=== PATIENT | female | born 1960 | race Caucasian/White ===

== ENCOUNTER 2023-05-21 11:19 | Outpatient (CLI) | payer BC | END 2023-05-21 11:20 | disposition home or self-care (01) | LOC: BICRAD 11:19 | PROVIDERS: ATTEND Urology | DX: N20.0 Calculus of kidney (principal); M61.9 Calcification and ossification of muscle, unspecified | CPT/HCPCS: 74018 ==

== ENCOUNTER 2023-07-02 09:19 | Inpatient (IN) | payer BC ==
[2023-07-02 10:10] LABS: Bilirubin Unable to Interpret (Negative); Blood, Urine Unable to Interpret (Negative); Clarity Clear (Clear); Glucose, Urine (Dipstick) Unable to Interpret mg/dL (Negative); Ketone, Urine Unable to Interpret mg/dL (Negative); Leukocyte Unable to Interpret Leu/uL (Negative); Nitrite Unable to Interpret (Negative); Protein, Urine (Dipstick) Unable to Interpret mg/dL (Neg-Trace); Urobilinogen UNABLE TO INTERPRET mg/dL (Less than 2)
[2023-07-02 10:12] LABS: #Basophils 0.1 thou/uL (0.0-0.2); #Eosinphils 0.2 thou/uL (0.0-0.7); #Monocytes 0.8 thou/uL (0.11-0.59); #Neutrophils 6.4 thou/uL (1.40-6.50); %Basophils 0.8 % (0.0-1.0); %Eosinophils 2.3 % (0.0-10.0); %Lymphocytes 27.2 % (21.0-51.0); %Monocytes 7.5 % (0.0-10.0); %Neutrophils 61.8 % (42.0-75.0); Hematocrit 40.8 % (36.0-47.0); Hemoglobin 13.5 g/dL (12.0-16.0); Mean Corpuscular HGB CONC 33.1 g/dL (32.0-36.0); Mean Corpuscular Hemoglobin 30.5 pg (27.0-31.0); Mean Corpuscular Volume 92.3 fl (78.0-98.0); Mean Platelet Volume 8.7 fL (7.4-10.4); Platelet Count 344 10x3/uL (130-400); RBC Distribution Width 12.7 % (11.5-14.5); Red Blood Cell (RBC) Count 4.42 mill/uL (4.20-5.40); White Blood Cell (WBC) Count 10.3 10x3/uL (4.8-10.8)
[2023-07-02] MEDS ORDERED: Ketorolac Tromethamine 30 MG (1 mL) VIAL ONE (10:15)
[2023-07-02] MEDS ORDERED: Ondansetron PF 4 MG/2 ML Vial ONE (10:15)
[2023-07-02] MEDS ORDERED: Morphine 4 MG/ML VIAL ONE (10:15)
[2023-07-02 10:19] LABS: Bacteria/HPF Rare-Few HPF (None Seen); CAUTI Indications for Culture Pelvic or flank pain; WBC/HPF 0-3 HPF (0-3)
[2023-07-02 10:20] LABS: Urine Culture Reflex No No
[2023-07-02 10:36] LABS: ALT (SGPT) 24 U/L (8-55); AST (SGOT) 21 U/L (5-34); Albumin 4.5 g/dL (3.4-4.8); Alkaline Phosphatase 73 U/L (40-110); Anion Gap 15 mmol/L (10-20); BUN (Urea Nitrogen) 12 mg/dL (9.8-20.1); Bilirubin, Total 0.3 mg/dL (0.2-1.2); Calc. Creatinine Clearance 0 mL/min (70-130); Calcium 9.9 mg/dL (7.8-10.44); Carbon Dioxide 23 mmol/L (23-31); Chloride 104 mmol/L (98-107); Estimated GFR 81; Globulin 3.2 g/dL (2.4-3.5); Glucose 113 mg/dL (80-115); Lipase 32 U/L (8-78); Magnesium 2.5 mg/dL (1.6-2.6); Potassium 4.2 mmol/L (3.5-5.1); Protein, Total 7.7 g/dL (5.8-8.1); Sodium 138 mmol/L (136-145)
[2023-07-02 10:44] LABS: Troponin I Less than 0.010 ng/mL (< 0.028)
[2023-07-02] MEDS ORDERED: Iopamidol-370 76% 500 ML MDV (1 ML CHARGE) ONE (11:10)
[2023-07-02] MEDS ORDERED: Ketorolac Tromethamine 30 MG (1 mL) VIAL IVP PRN (12:39)
[2023-07-02] MEDS ORDERED: Ondansetron ODT 4 MG TAB SL PRN (12:39)
[2023-07-02] MEDS ORDERED: Morphine 4 MG/ML VIAL SLOW IVP PRN (12:39)
[2023-07-02] MEDS ORDERED: Acetaminophen 325 MG TAB PO PRN (12:39)
[2023-07-02] MEDS ORDERED: Ondansetron PF 4 MG/2 ML Vial IVP PRN (12:39)
[2023-07-02 13:35] LABS: INR-International Normal Ratio 0.9; Prothrombin Time 12.3 sec (12.0-14.7)
[2023-07-02 13:36] LABS: PTT 34.5 sec (22.9-36.1)
[2023-07-02 15:53] VITALS: BMI 32.1
[2023-07-02] MEDS: Lactated Ringer's 1,000 ML IV SCH (16:47)
[2023-07-03] MEDS: Lactated Ringer's 1,000 ML IV SCH (05:27)
[2023-07-03] MEDS ORDERED: LevoFLOXacin 500 mg/D5W 500 MG in Premix 1 BAG IVPB SCH (12:00)
[2023-07-03] MEDS ORDERED: Iopamidol 0 ML ONE (13:17)
[2023-07-03] MEDS ORDERED: Midazolam HCl 2 mg/2 ml Vial ONE (14:15)
[2023-07-03] MEDS ORDERED: fentaNYL 50 mcg/mL 1 mL Vial ONE (14:15)
[2023-07-03] MEDS ORDERED: PROPOFOL 20 ML ONE (14:15)
[2023-07-03] MEDS ORDERED: Ondansetron PF 4 MG/2 ML Vial ONE (14:16)
[2023-07-03] MEDS ORDERED: Lidocaine 1% PF 5 ML VIAL ONE (14:16)
[2023-07-03] MEDS ORDERED: Dexamethasone 20 MG/5 ML VIAL ONE (14:16)
[2023-07-03] MEDS ORDERED: Lidocaine 2% 6 ML (Jelly) SYR ONE (14:17)
[2023-07-03] MEDS ORDERED: LevoFLOXacin D5W 500 mg (100 mL) BAG ONE (14:23)
[2023-07-03] MEDS ORDERED: Ketorolac Tromethamine 30 MG (1 mL) VIAL ONE (14:56)
[2023-07-03] MEDS ORDERED: ePHEDrine Sulfate 50 MG/10 ML VIAL ONE (14:57)
[2023-07-03] MEDS ORDERED: Ibuprofen 800 MG TAB PO PRN ×2 (15:44→17:00)
[2023-07-03] MEDS ORDERED: Phenazopyridine HCl 100 MG TAB PO PRN (15:44)
[2023-07-03] MEDS ORDERED: traMADol HCl 50 MG TAB PO PRN (15:44)
[2023-07-03] MEDS ORDERED: Ondansetron PF 4 MG/2 ML Vial IVP PRN (15:44)
[2023-07-03] MEDS ORDERED: Oxybutynin 5 MG TAB PO PRN (15:44)
[2023-07-03 17:15] VITALS: BP 164/91; TEMP 97.4
== END 2023-07-03 17:16 | disposition home or self-care (01) | DRG 661 ==
LOC: ERS 09:19 → T4-A 13:23
PROVIDERS: ADMIT Urology; ATTEND Urology
PROC: 0TC78ZZ Extirpation of Matter from Left Ureter, Via Natural or Artificial Opening Endoscopic (ICD-10-PCS; principal; 2023-07-03)
PROC: 0T778DZ Dilation of Left Ureter with Intraluminal Device, Via Natural or Artificial Opening Endoscopic (ICD-10-PCS; 2023-07-03)
DX: N20.1 Calculus of ureter (principal); Z79.899 Other long term (current) drug therapy; Z88.8 Allergy status to other drugs, medicaments and biological substances; Z98.890 Other specified postprocedural states; Z87.891 Personal history of nicotine dependence
CPT/HCPCS: 71045; 74177; 80053; 81001; 82365; 83605; 83690; 83735; 84484; 85025; 85610; 85730; 88300; 93005; 96374; 96375; C1769; C2617; J1100; J1885; J1956; J2250; J2270; J2405; J2704; J3010; J7120; Q9967